=== PATIENT | male | born 1970 | race Caucasian/White ===

== ENCOUNTER → 2016-10-28 | Outpatient (CLI) | payer MEDICARE, MEDICAID ==
[~2016-10-28] MED LIST: ASPI325T4 PO; BUPR150T6 PO; CICL15CR3 TP; CICL6.6S3 TP; ENOX80SY5 SQ; ESCI20TA10 PO; LOPE2TAB59 PO; SOLI5TAB PO; WARF7.5T PO-COUM
== END | disposition home or self-care (01) ==
LOC: SUSANVILLE 12:00
PROVIDERS: ATTEND Internal Medicine Cardiovascular Disease
DX: I08.1 Rheumatic disorders of both mitral and tricuspid valves (principal); I37.1 Nonrheumatic pulmonary valve insufficiency
CPT/HCPCS: 93306